=== PATIENT | female | born 1995 | race Caucasian/White ===

== ENCOUNTER 2020-08-31 16:49 | Emergency (ER) | payer SELFPAY | END 2020-08-31 19:16 | disposition home or self-care (01) | LOC: FER 16:49 | DX: S40.021A Contusion of right upper arm, initial encounter (principal); I10 Essential (primary) hypertension; W20.8XXA Other cause of strike by thrown, projected or falling object, initial encounter; Y99.0 Civilian activity done for income or pay; Y92.89 Other specified places as the place of occurrence of the external cause | CPT/HCPCS: 73090 ==

== ENCOUNTER 2020-10-02 12:30 | Emergency (ER) | payer OTHER ==
[2020-10-02 14:11] LABS: BASOPHIL 0.3 % (0-2); EOSINOPHIL 0.4 % (0-5); HCT 42.6 % (37.0-47.0); LYMPHOCYTE 19.2 % (15-48); MCH 27.8 pg (25.0-31.0); MCHC 32.9 g/dL (32.0-36.0); MCV 84.7 fL (78.0-100.0); MONOCYTE 4.9 % (0-12); MPV 10.5 fL (6.0-9.5); NEUTROPHIL 74.7 % (41-80); NRBC 0; PLT 327 K/uL (150-400); RBC 5.03 M/uL (4.20-5.40); RDW 13.4 % (11.5-14.0); WBC 15.4 K/uL (4.0-10.5)
[2020-10-02 14:32] LABS: BUN/CREAT RATIO (CALC) 16.2 RATIO; CREATININE 0.74 mg/dL (0.51-0.95); POTASSIUM 4.3 mmol/L (3.5-5.1)
[2020-10-02] MEDS ORDERED: VENTOLIN HFA IN18 GM INH ×2 (16:09→16:28)
[2020-10-02] MEDS ORDERED: MEDROL 4MG DOSEP4 MG PO ×2 (16:09→16:28)
[2020-10-02] MEDS ORDERED: LEVAQUIN750 MG PO ×2 (16:09→16:28)
== END 2020-10-02 16:39 | disposition home or self-care (01) ==
LOC: FER 12:30
PROVIDERS: Nurse Practitioner Family
DX: J06.9 Acute upper respiratory infection, unspecified (principal); M94.0 Chondrocostal junction syndrome [Tietze]; I10 Essential (primary) hypertension; Z20.822 Contact with and (suspected) exposure to COVID-19; Z79.899 Other long term (current) drug therapy
CPT/HCPCS: 36415; 71045; 71046; 80048; 84484; 85025; 85379; 93005; U0002